=== PATIENT | female | born 1995 | race African-American/Black ===

== ENCOUNTER 2018-07-01 07:59 | Emergency (ER) | payer OTHER ==
[~2018-07-01] VITALS: Ht 162.6 cm; Wt 45.4 kg
[2018-07-01 08:00] VITALS: BP 124/76
[2018-07-01] MEDS ORDERED: Naloxone 1mg/ml 2ml ONE (08:09)
[2018-07-01] MEDS ORDERED: Naloxone 1mg/ml 2ml IVP ONE (08:15)
[2018-07-01 08:48] LABS: BASOPHILS % (AUTO) 0.8 % (0.0-2.0); EOSINOPHILS % (AUTO) 1.6 % (0.0-3.0); HEMATOCRIT 39.5 % (37.0-47.0); HEMOGLOBIN 12.9 G/DL (12.0-16.0); LYMPHOCYTES % (AUTO) 28.9 % (20.0-45.0); MEAN CORPUSCULAR VOLUME 87 FL (80-99); MONOCYTES % (AUTO) 7.3 % (1.0-10.0); NEUTROPHILS % (AUTO) 61.5 % (45.0-75.0); PLATELET COUNT 206 K/UL (150-450); RED BLOOD COUNT 4.53 M/UL (4.20-5.40); RED CELL DISTRIBUTION WIDTH 10.9 % (11.6-14.8)
[2018-07-01 08:52] LABS: APPEARANCE,URINE CLEAR; BILIRUBIN, URINE NEGATIVE (NEGATIVE); COLOR,URINE PALE YELLOW; GLUCOSE, URINE (UA) NEGATIVE (NEGATIVE); KETONES,URINE 2+ (NEGATIVE); LEUKOCYTE ESTERASE ,URINE NEGATIVE (NEGATIVE); NITRITE,URINE NEGATIVE (NEGATIVE); PH,URINE 5 (4.5-8.0); PROTEIN,URINE NEGATIVE (NEGATIVE); UROBILINOGEN,URINE NORMAL MG/DL (0.0-1.0)
[2018-07-01 08:59] LABS: INR 1.1 (0.9-1.1)
[2018-07-01 09:03] LABS: ANION GAP 8 mmol/L (5-15); BLOOD UREA NITROGEN 10 mg/dL (7-18); CALCIUM 8.9 MG/DL (8.5-10.1); CARBON DIOXIDE 27 MMOL/L (21-32); CHLORIDE 104 MMOL/L (98-107); CREATININE 0.8 MG/DL (0.55-1.30); POTASSIUM 3.1 MMOL/L (3.5-5.1); SODIUM 139 MMOL/L (136-145)
[2018-07-01 09:08] LABS: ALANINE AMINOTRANSFERASE 16 U/L (12-78); ALBUMIN/GLOBULIN RATIO 1.1 (1.0-2.7); ALKALINE PHOSPHATASE 44 U/L (46-116); ASPARTATE AMINO TRANSFERASE 14 U/L (15-37); BILIRUBIN,TOTAL 0.3 MG/DL (0.2-1.0); CREATINE KINASE 80 U/L (26-308)
--- NOTE | 2018-07-01 09:11 | Emergency Room Report ---
History of Present Illness General Chief Complaint: Overdose Source: Patient Present Illness HPI This patient brought by paramedics for being lethargic. Report from family that she used GHB. Pt. cannot give any history. With paramedics VSS, pulse ox fine. No response to Narcan 2 mg x two. No report of fever or trauma. history is limited due condition. Allergies: Coded Allergies: UNABLE TO ASSESS (Unverified , 07/01/18) Patient History Last Menstrual Period: unknown Nursing Documentation-[facility] Past Medical History: No History, Except For Review of Systems Constitutional: Reports: see HPI All Other Systems: limited Physical Exam Vital Signs Date Time Temp Pulse Resp B/P (MAP) Pulse Ox O2 Delivery O2 Flow Rate FiO2 07/01/18 07:55 97.3 64 18 127/100 99 Room Air 97.3 Sp02 EP Interpretation: reviewed, normal General Appearance: normal inspection, well appearing, no apparent distress, non-toxic, lethargic Head: normocephalic, atraumatic Eyes: bilateral eye normal inspection, bilateral eye PERRL - 3 mm, bilateral eye EOMI ENT: normal ENT inspection, normal pharynx, no angioedema, normal voice, moist mucus membranes Neck: normal inspection, full range of motion, supple, no meningismus, no bony tend Respiratory: normal inspection, lungs clear, normal breath sounds, no rhonchi, no respiratory distress, no retraction, no accessory muscle use, no wheezing Cardiovascular #1: normal inspection, regular rate, rhythm, no edema Gastrointestinal: normal inspection, normal bowel sounds, non tender, soft, no mass, non-distended, other - thin Musculoskeletal: normal range of motion Neurologic: normal inspection, alert, oriented x3, responsive, motor strength/ tone normal, other - after she woke up neuro normal Psychiatric: normal inspection, judgement/insight normal, memory normal Suicide Risk Assessment: Suicidal Ideation: No Had intent to initiate attempt: No Pt's plan for suicide attempt: No Has means to complete attempt: No Skin: normal inspection, normal color, no rash, warm/dry Medical Decision Making Diagnostic Impression: Primary Impression: Drug overdose ER Course 9 am pt. spontaneously back to normal. h/pe/labs all c/w GHB OK for d/c Last Vital Signs Date Time Temp Pulse Resp B/P (MAP) Pulse Ox O2 Delivery O2 Flow Rate FiO2 07/01/18 07:55 97.3 64 18 127/100 99 Room Air 97.3 Disposition: HOME, SELF-CARE Condition: Stable Referrals: NOT CHOSEN IPA/,REFERRING (PCP) Tomas Kemp M.D. Jul 01, 2018 09:11
[2018-07-01 09:35] VITALS: BP 132/66
--- NOTE | 2018-07-01 10:57 | Diagnostic Imaging Report ---
Indication: Chest pain Technique: One view of the chest Comparison: none Findings: Lungs and pleural spaces are clear. Heart size is normal Impression: No acute process
--- NOTE | 2018-07-01 15:46 | Cardiology Report ---
APPROVED REPORT EKG Measurement Heart [id number] Normal sinus rhythm Normal ECG
== END 2018-07-01 09:37 | disposition home or self-care (01) ==
LOC: EDBD 07:59 → EMR 08:21
DX: T41.291A Poisoning by other general anesthetics, accidental (unintentional), initial encounter (principal); R53.83 Other fatigue; Y92.019 Unspecified place in single-family (private) house as the place of occurrence of the external cause
CPT/HCPCS: 36415; 71045; 80053; 80307; 81001; 82550; 84484; 85025; 85610; 93005; 96361; 96374; 99284; J2310